=== PATIENT | male | born 1980 | race Caucasian/White ===

== ENCOUNTER 2019-04-16 18:54 | Emergency (ER) | payer SELFPAY ==
[~2019-04-16] VITALS: Ht 162.6 cm; Wt 51.7 kg
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
[2019-04-16 19:23] LABS: BASOPHILS % (AUTO) 0.2 % (0.0-2.0); HEMATOCRIT 48 % (39-51); HEMOGLOBIN 15.5 g/dL (13.5-17.5); LYMPHOCYTES # (AUTO) 0.9 /CMM (0.8-4.8); LYMPHOCYTES % (AUTO) 3.5 % (20.0-44.0); MEAN CORPUSCULAR HGB CONC 32 g/dl (31.0-36.0); MEAN CORPUSCULAR VOLUME 86 fL (80-96); MONOCYTES # (AUTO) 0.9 /CMM (0.1-1.30); MONOCYTES % (AUTO) 3.9 % (2.0-12.0); NEUTROPHILS # (AUTO) 22.5 /CMM (1.8-8.9); NEUTROPHILS % (AUTO) 92.4 % (43.0-81.0); PLATELET COUNT (AUTO) 355 /CMM (150-450); RED BLOOD CELL COUNT(AUTO) 5.57 MIL/uL (4.5-6.0); WHITE BLOOD COUNT (AUTO) 24.4 K/uL (4.3-11.0)
[2019-04-16] MEDS ORDERED: LORAZEPAM INJ 2 MG/ML VIAL ONE (19:25)
[2019-04-16] MEDS ORDERED: LORAZEPAM INJ 2 MG/ML VIAL IV ONE (19:30)
[2019-04-16] MEDS ORDERED: IV NS 0.9% 1,000 ML BAG IV ONE (19:30)
[2019-04-16 19:44] LABS: ALANINE AMINOTRANSFERASE 18 U/L (12-78); ALBUMIN 4.4 g/dL (3.4-5.0); ALKALINE PHOSPHATASE 100 U/L (46-116); ASPARTATE AMINOTRANSFERASE 30 U/L (15-37); BILIRUBIN,DIRECT 0.1 mg/dL (0.0-0.2); BILIRUBIN,TOTAL 0.6 mg/dL (0.2-1.0); CARBON DIOXIDE 24 mmol/L (21-32); CHLORIDE 104 mmol/L (98-107); CREATININE 0.9 mg/dL (0.6-1.3); GLUCOSE 117 mg/dL (74-106); POTASSIUM 3.7 mmol/L (3.5-5.1); SODIUM SERUM 142 mmol/L (136-145); TOTAL PROTEIN, SERUM 8.1 g/dL (6.4-8.2); UREA NITROGEN, BLOOD 18 mg/dL (7-18)
[2019-04-16 19:46] LABS: SALICYLATE 1.8 mg/dL (2.8-20.0)
[2019-04-16 19:47] LABS: ACETAMINOPHEN 0 ug/ml (10-30)
[2019-04-16] MEDS ORDERED: HALOPERIDOL LACTATE INJ 5 MG/ML VIAL ONE (19:53)
--- NOTE | 2019-04-16 19:56 | NUR ---
PT MEDICATED PER MD ORDER. NOTED IN BED RESTLESS AT THIS TIME. -SOB. VERBALLY RESPONSIVE. -ACUTE DISTRESS NOTED AT THIS TIME. SITTER AT BEDSIDE.
[2019-04-16] MEDS ORDERED: HALOPERIDOL LACTATE INJ 5 MG/ML VIAL IV ONE (20:00)
[2019-04-16 20:06] LABS: ALCOHOL, BLOOD < 3 mg/dL (0-0)
[2019-04-16 20:22] LABS: THYROID STIMULATING HORMONE 2.201 uIU/mL (0.358-3.74)
--- NOTE | 2019-04-16 20:56 | NUR ---
URINE COLLECTED AND SENT TO LAB
[2019-04-16 21:10] LABS: APPEARANCE,URINE Clear (CLEAR); BILIRUBIN,URINE SMALL (NEGATIVE); BLOOD, URINE Large Ery/uL (NEGATIVE); COLOR,URINE Yellow (YELLOW); KETONES,URINE 40 (NEGATIVE); LEUKOCYTE ESTERASE ,URINE Negative (NEGATIVE); NITRITE, URINE Negative (NEGATIVE); PROTEIN,URINE 30 mg/dl (NEGATIVE); UGLUCOSE Negative (NEGATIVE)
--- NOTE | 2019-04-16 21:36 | NUR ---
Patient is resting comfortably in bed with eyes closed. Easily aroused. VSS
[2019-04-16 21:45] LABS: RBC,URINE 51-80 /HPF (0-2)
[2019-04-16 21:46] LABS: BACTERIA,URINE Few /HPF (None Seen); MUCUS,URINE Few /LPF (None Seen)
[2019-04-16] MEDS ORDERED: CEFTRIAXONE 1 G in IV D5W 50 ML IV ONE (22:00)
[2019-04-16] MEDS ORDERED: CEFTRIAXONE 1GM BAG (ER ONLY) 50 ML IV ONE (22:48)
--- NOTE | 2019-04-16 23:11 | NUR ---
Patient is resting comfortably in bed with eyes closed. Easily aroused. VSS. sitter at bedside
--- NOTE | 2019-04-17 01:15 | NUR ---
Patient is resting comfortably in bed with eyes closed. Easily aroused. VSS. sitter at bedside
--- NOTE | 2019-04-17 04:33 | NUR ---
Patient is resting comfortably in bed with eyes closed. Easily aroused. VSS. sitter at bedside
[2019-04-17] MEDS ORDERED: IBUPROFEN 600 MG TABLET PO ONE ×2 (06:21→06:30)
[2019-04-17] MEDS ORDERED: LORAZEPAM 1 MG TABLET ONE (06:21)
[2019-04-17] MEDS ORDERED: LORAZEPAM 1 MG TABLET PO ONE (06:30)
[2019-04-17 07:18] VITALS: BP 112/88
== END 2019-04-17 07:18 | disposition home or self-care (01) ==
LOC: ER 18:57
DX: F15.10 Other stimulant abuse, uncomplicated (principal); R41.82 Altered mental status, unspecified; G40.909 Epilepsy, unspecified, not intractable, without status epilepticus; K21.9 Gastro-esophageal reflux disease without esophagitis; F17.200 Nicotine dependence, unspecified, uncomplicated; Z59.0 Homelessness
CPT/HCPCS: 36415; 70450; 71045; 80048; 80076; 80305; 80307; 80329; 81001; 84443; 84484; 85025; 85730; 93005; 96361; 96365; 96375; 99284; G0480; J0696 ×2; J1630; J2060; J7030; J7060; 81000-TC